=== PATIENT | female | born 1995 | race Caucasian/White ===

== ENCOUNTER 2017-10-05 21:00 | Outpatient (CLI) | payer OTHER ==
[2017-10-06 00:27] LABS: ADD UMIC NO; UR ASCORBIC ACID NEGATIVE (NEGATIVE); UR BILIRUBIN (Dip) NEGATIVE (NEGATIVE); UR BLOOD (Dip) NEGATIVE (NEGATIVE); UR CLARITY CLEAR (CLEAR); UR COLOR YELLOW (YELLOW); UR GLUCOSE (Dip) NEGATIVE (NEGATIVE); UR KETONES (Dip) NEGATIVE (NEGATIVE); UR LEUKOCYTE ESTERASE (Dip) NEGATIVE Leu/ul (NEGATIVE); UR NITRITE (Dip) NEGATIVE (NEGATIVE); UR SPECIFIC GRAVITY (Dip) 1.024 (1.003-1.030); UR TOTAL PROTEIN (Dip) NEGATIVE (NEGATIVE); UR UROBILINOGEN (Dip) NEGATIVE (NEGATIVE)
[2017-10-06 00:50] LABS: RUPTURE FETAL MEMBRANES NEGATIVE (NEGATIVE)
== END 2017-10-06 02:18 | disposition home or self-care (01) ==
LOC: OBT 21:00 → L-D 21:00
DX: O36.8130 Decreased fetal movements, third trimester, not applicable or unspecified (principal); O26.893 Other specified pregnancy related conditions, third trimester; R10.2 Pelvic and perineal pain; Z3A.30 30 weeks gestation of pregnancy
CPT/HCPCS: 76817; 76818; 81003; 84112; 87086

== ENCOUNTER 2017-10-27 13:50 | Outpatient (CLI) | payer OTHER ==
[2017-10-27 15:19] LABS: ADD UMIC YES; UR ASCORBIC ACID NEGATIVE (NEGATIVE); UR BACTERIA FEW /HPF (NONE SEEN); UR BILIRUBIN (Dip) NEGATIVE (NEGATIVE); UR BLOOD (Dip) NEGATIVE (NEGATIVE); UR CLARITY CLOUDY (CLEAR); UR COLOR YELLOW (YELLOW); UR GLUCOSE (Dip) NEGATIVE (NEGATIVE); UR KETONES (Dip) NEGATIVE (NEGATIVE); UR LEUKOCYTE ESTERASE (Dip) 1+ Leu/ul (NEGATIVE); UR MUCUS FEW /HPF (NONE SEEN); UR NITRITE (Dip) NEGATIVE (NEGATIVE); UR RBC 3 /HPF (0-5); UR SPECIFIC GRAVITY (Dip) 1.016 (1.003-1.030); UR SQUAMOUS EPITHELIAL CELL MODERATE /HPF (FEW); UR TOTAL PROTEIN (Dip) NEGATIVE (NEGATIVE); UR UROBILINOGEN (Dip) NEGATIVE (NEGATIVE); UR WBC 5 /HPF (0-5)
[2017-10-27 15:28] LABS: AMPHETAMINE/METHAMPHETAMINE Negative (NEGATIVE); BARBITURATES Negative (NEGATIVE); BENZODIAZEPINES Negative (NEGATIVE); CANNABINOIDS Negative (NEGATIVE); COCAINE Negative (NEGATIVE); OPIATES Negative (NEGATIVE)
== END 2017-10-27 16:38 | disposition home or self-care (01) ==
LOC: OBT 13:50 → L-D 13:53 → OBT 16:38
DX: O62.9 Abnormality of forces of labor, unspecified (principal); Z3A.00 Weeks of gestation of pregnancy not specified
CPT/HCPCS: 76818; 80307; 81001; 87086

== ENCOUNTER 2017-11-11 17:38 | Inpatient (IN) | payer OTHER ==
[2017-11-11] MEDS ORDERED: CARBOPROST 250 MCG INJ IM (22:00)
[2017-11-11] MEDS ORDERED: HYDROCODONE/APAP (5/325) TAB PO (22:00)
[2017-11-11] MEDS ORDERED: MISOPROSTOL 200 MCG TAB PR (22:00)
[2017-11-11] MEDS ORDERED: LIDOCAINE 1% (MPF) 30 ML INJ INJ (22:00)
[2017-11-11] MEDS ORDERED: IBUPROFEN 600 MG TAB PO (22:00)
[2017-11-11] MEDS ORDERED: OXYTOCIN 30 UNITS/LR 500 ML IV (22:00)
[2017-11-11] MEDS ORDERED: METHYLERGONOVINE 0.2 MG INJ IM (22:00)
[2017-11-11] MEDS: LACTATED RINGER'S 1,000 ML IV (22:43)
[2017-11-12 00:41] LABS: ADD MAN DIFF? NO
[2017-11-12 00:43] LABS: WHITE BLOOD COUNT 11.2 10^3/ul (4.8-10.8)
[2017-11-12 00:43] LABS: BASOPHILS % 0.3 % (0.0-2.0); EOSINOPHILS # 0.1 10^3/ul (0.0-0.5); EOSINOPHILS % 0.5 % (0.0-7.0); HEMATOCRIT 34.4 % (37.0-47.0); HEMOGLOBIN 11.2 g/dl (12.0-16.0); LYMPHOCYTES # 3.1 10^3/ul (0.8-2.9); MEAN CORPUSCULAR HEMOGLOBIN 27.7 pg (29.0-33.0); MEAN CORPUSCULAR HGB CONC 32.6 g/dl (32.0-37.0); MEAN CORPUSCULAR VOLUME 84.9 fl (82.0-101.0); MEAN PLATELET VOLUME 10.8 fl (7.4-10.4); MONOCYTE # 0.4 10^3/ul (0.3-0.9); MONOCYTES % 3.7 % (0.0-11.0); NEUTROPHIL # 7.5 10^3/ul (1.6-7.5); NEUTROPHILS % 67.2 % (39.0-77.0); PLATELET COUNT 351 10^3/UL (140-415); RED BLOOD COUNT 4.05 10^6/ul (4.20-5.40); RED CELL DISTRIBUTION WIDTH 12.9 % (11.5-14.5)
[2017-11-12 00:57] LABS: INR 0.86; PROTIME 11.8 Sec (11.9-14.9); PT RATIO 0.9
[2017-11-12 00:58] LABS: PARTIAL THROMBOPLASTIN TIME 28.6 Sec (25.0-35.0)
[2017-11-12] MEDS: LACTATED RINGER'S 1,000 ML IV ×3 (01:22→23:40)
[2017-11-12] MEDS ORDERED: OXYTOCIN 30 UNITS/LR 500 ML BAG IV (07:00)
[2017-11-12 09:13] LABS: AMPHETAMINE/METHAMPHETAMINE Negative (NEGATIVE); BARBITURATES Negative (NEGATIVE); BENZODIAZEPINES Negative (NEGATIVE); CANNABINOIDS Negative (NEGATIVE); COCAINE Negative (NEGATIVE); OPIATES Negative (NEGATIVE)
[2017-11-12] MEDS ORDERED: OXYTOCIN 10 UNIT INJ (11:28)
[2017-11-12] MEDS: CEFAZOLIN 2 GM/50 ML (PMX) 50 ML IV ×3 (11:28→21:50)
[2017-11-12] MEDS ORDERED: ONDANSETRON 4 MG INJ (11:28)
[2017-11-12] MEDS ORDERED: PHENYLephrine (100 MCG/ML) 5ML SYG ×2 (11:28→12:02)
[2017-11-12] MEDS ORDERED: morphine SULFATE/PF (10 MG/10 ML) INJ (11:28)
[2017-11-12] MEDS ORDERED: PHENYLephrine 10 MG INJ (12:07)
[2017-11-12] MEDS ORDERED: CARBOPROST 250 MCG INJ IM ×2 (12:30→17:00)
[2017-11-12] MEDS ORDERED: MISOPROSTOL 200 MCG TAB PR ×2 (12:30→17:00)
[2017-11-12] MEDS ORDERED: METHYLERGONOVINE 0.2 MG INJ IM ×2 (12:30→17:00)
[2017-11-12] MEDS ORDERED: OXYTOCIN 30 UNITS/LR 500 ML IV ×2 (12:30→17:00)
[2017-11-12] MEDS: OXYTOCIN 30 UNITS/LR 500 ML IV ×2 (13:31→17:41)
[2017-11-12] MEDS ORDERED: DIPHENHYDRAMINE 50 MG INJ IV (15:00)
[2017-11-12] MEDS ORDERED: ONDANSETRON 4 MG INJ IV (15:00)
[2017-11-12] MEDS ORDERED: morphine 2 MG INJ IV (15:00)
[2017-11-12] MEDS ORDERED: NALOXONE (0.4 MG/ML) INJ IV (15:00)
[2017-11-12 16:46] LABS: RAPID PLASMA REAGIN NONREACTIVE (NR)
[2017-11-12] MEDS: KETOROLAC 30 MG INJ IV (17:40)
[2017-11-12] MEDS: LANOLIN 7 GM TUBE TOP (17:41)
[2017-11-12] MEDS: SENNA/DOCUSATE NA (8.6MG/50MG) TAB PO (21:49)
[2017-11-13] MEDS: KETOROLAC 30 MG INJ IV ×2 (04:40→11:28)
[2017-11-13] MEDS: CEFAZOLIN 2 GM/50 ML (PMX) 50 ML IV (05:33)
[2017-11-13] MEDS: LACTATED RINGER'S 1,000 ML IV (08:10)
[2017-11-13 08:27] LABS: ADD MAN DIFF? NO
[2017-11-13 08:32] LABS: BASOPHILS % 0.2 % (0.0-2.0); EOSINOPHILS # 0.1 10^3/ul (0.0-0.5); EOSINOPHILS % 0.5 % (0.0-7.0); HEMATOCRIT 27.1 % (37.0-47.0); HEMOGLOBIN 8.9 g/dl (12.0-16.0); LYMPHOCYTES # 2.1 10^3/ul (0.8-2.9); LYMPHOCYTES % 20.2 % (15.0-51.0); MEAN CORPUSCULAR HEMOGLOBIN 27.4 pg (29.0-33.0); MEAN CORPUSCULAR HGB CONC 32.8 g/dl (32.0-37.0); MEAN CORPUSCULAR VOLUME 83.4 fl (82.0-101.0); MEAN PLATELET VOLUME 10.4 fl (7.4-10.4); MONOCYTE # 0.7 10^3/ul (0.3-0.9); MONOCYTES % 6.3 % (0.0-11.0); NEUTROPHIL # 7.5 10^3/ul (1.6-7.5); NEUTROPHILS % 72.4 % (39.0-77.0); PLATELET COUNT 266 10^3/UL (140-415); RED BLOOD COUNT 3.25 10^6/ul (4.20-5.40); RED CELL DISTRIBUTION WIDTH 12.8 % (11.5-14.5)
[2017-11-13 08:32] LABS: WHITE BLOOD COUNT 10.3 10^3/ul (4.8-10.8)
[2017-11-13] MEDS: SENNA/DOCUSATE NA (8.6MG/50MG) TAB PO ×2 (09:15→21:34)
[2017-11-13] MEDS: OXYCODONE/ACETAMINOPHEN (5/325) TAB PO (15:32)
[2017-11-13] MEDS: IBUPROFEN 600 MG TAB PO (17:35)
[2017-11-13] MEDS: FERROUS SULFATE (EC) 325 MG TAB PO (21:34)
[2017-11-14] MEDS: IBUPROFEN 600 MG TAB PO ×5 (00:08→22:33)
[2017-11-14 08:26] LABS: ADD MAN DIFF? NO
[2017-11-14 08:29] LABS: WHITE BLOOD COUNT 10.5 10^3/ul (4.8-10.8)
[2017-11-14 08:29] LABS: BASOPHILS % 0.2 % (0.0-2.0); EOSINOPHILS # 0.1 10^3/ul (0.0-0.5); EOSINOPHILS % 1.2 % (0.0-7.0); HEMATOCRIT 28.3 % (37.0-47.0); HEMOGLOBIN 9.2 g/dl (12.0-16.0); LYMPHOCYTES # 2.8 10^3/ul (0.8-2.9); LYMPHOCYTES % 26.5 % (15.0-51.0); MEAN CORPUSCULAR HEMOGLOBIN 27.3 pg (29.0-33.0); MEAN CORPUSCULAR HGB CONC 32.5 g/dl (32.0-37.0); MEAN PLATELET VOLUME 10.3 fl (7.4-10.4); MONOCYTE # 0.8 10^3/ul (0.3-0.9); MONOCYTES % 7.6 % (0.0-11.0); NEUTROPHIL # 6.7 10^3/ul (1.6-7.5); NEUTROPHILS % 64.1 % (39.0-77.0); PLATELET COUNT 285 10^3/UL (140-415); RED BLOOD COUNT 3.37 10^6/ul (4.20-5.40); RED CELL DISTRIBUTION WIDTH 13.3 % (11.5-14.5)
[2017-11-14] MEDS: FERROUS SULFATE (EC) 325 MG TAB PO ×2 (08:58→22:30)
[2017-11-14] MEDS: SENNA/DOCUSATE NA (8.6MG/50MG) TAB PO ×2 (08:58→22:30)
[2017-11-14] MEDS: LANOLIN 7 GM TUBE TOP (22:39)
[2017-11-15] MEDS: OXYCODONE/ACETAMINOPHEN (5/325) TAB PO ×2 (03:07→09:29)
[2017-11-15] MEDS: IBUPROFEN 600 MG TAB PO ×2 (06:07→12:49)
[2017-11-15] MEDS: FERROUS SULFATE (EC) 325 MG TAB PO (09:29)
[2017-11-15] MEDS: SENNA/DOCUSATE NA (8.6MG/50MG) TAB PO (09:29)
== END 2017-11-15 19:04 | disposition home or self-care (01) | DRG 766 ==
LOC: OBT 17:38 → L-D 11-12 06:56 → OBT 21:45 → PP1 11-12 15:44 → L-D 21:45
PROVIDERS: Obstetrics & Gynecology
PROC: 10D00Z1 Extraction of Products of Conception, Low, Open Approach (ICD-10-PCS; principal; 2017-11-12 11:45)
DX: O36.5930 Maternal care for other known or suspected poor fetal growth, third trimester, not applicable or unspecified (principal); Z37.0 Single live birth; O34.211 Maternal care for low transverse scar from previous cesarean delivery; Z3A.37 37 weeks gestation of pregnancy
CPT/HCPCS: 62319; 76815; 76818; 80307; 85025; 85610; 85730; 86592; 86850; 86900; 86901; 99464